=== PATIENT | female | born 1970 | race African-American/Black ===

== ENCOUNTER 2017-10-13 22:13 | Emergency (ER) | payer OTHER ==
[~2017-10-13] VITALS: Ht 175.3 cm; Wt 90.3 kg
[2017-10-13] MEDS ORDERED: ZANTAC 150MG T150 MG PO (22:27)
[2017-10-13] MEDS ORDERED: ZOFRAN ODT8 MG PO (23:07)
[2017-10-13] MEDS ORDERED: OSELB75 PO (23:07)
== END 2017-10-14 00:25 | disposition home or self-care (01) ==
LOC: EDBD 22:13 → ER 22:13
DX: J11.1 Influenza due to unidentified influenza virus with other respiratory manifestations (principal); R11.2 Nausea with vomiting, unspecified; R19.7 Diarrhea, unspecified

== ENCOUNTER 2019-11-16 13:52 | Emergency (ER) | payer OTHER ==
[~2019-11-16] VITALS: Ht 172.7 cm; Wt 72.6 kg
[~2019-11-16 13:52] MED LIST: OSELB75 PO; ZANTAC 150MG T150 MG PO; ZOFRAN ODT8 MG PO
[2019-11-16] MEDS ORDERED: NORCO 5-325 TA1 EAC1 PO (16:52)
[2019-11-16 17:04] VITALS: BP 115/78
== END 2019-11-16 17:05 | disposition home or self-care (01) ==
LOC: ER 13:52
DX: M25.572 Pain in left ankle and joints of left foot (principal); R60.0 Localized edema

== ENCOUNTER 2020-03-04 22:32 | Emergency (ER) | payer OTHER ==
[~2020-03-04] VITALS: Ht 175.3 cm; Wt 95.3 kg
[~2020-03-04 22:32] MED LIST changes: +NORCO 5-325 TA1 EAC1 PO
[2020-03-05 00:37] LABS: HEMATOCRIT 38.5 % (37.0-47.0); HEMOGLOBIN 12.6 gm/dL (12.0-15.0); MCH 30.3 pg (26.0-34.0); MCHC 32.8 g/dL (28.0-37.0); MCV 92.2 fL (80.0-100.0); RBC 4.17 mil/uL (4.20-5.00); RDW 14.7 % (10.5-14.5); WBC 7.7 thou/uL (4.0-11.0)
[2020-03-05 00:39] LABS: ANION GAP 12 mmol/L (7-16); BUN 13 mg/dL (7-18); CALCIUM 8.7 mg/dL (8.5-10.1); CHLORIDE 99 mmol/L (98-107); CO2 23 mmol/L (21-32); CREATININE 0.8 mg/dL (0.6-1.0); GLUCOSE 140 mg/dL (74-106); POTASSIUM 3.5 mmol/L (3.5-5.1); SODIUM 134 mmol/L (136-145)
[2020-03-05 00:50] LABS: LIPASE 223 U/L (73-393); SGOT 24 U/L (15-37); SGPT 20 U/L (30-65); TOTAL BILIRUBIN 0.5 mg/dL (0.2-1.0); TOTAL PROTEIN 7.5 g/dL (6.4-8.2); TROPONIN-I <0.06 ng/mL (<0.06)
[2020-03-05 01:27] LABS: URINE BILIRUBIN NEGATIVE (Negative); URINE BLOOD NEGATIVE (Negative); URINE CLARITY CLEAR; URINE COLOR YELLOW; URINE GLUCOSE-RANDOM* NEGATIVE (Negative); URINE KETONES TRACE (Negative); URINE LEUKOCYTES-REFLEX TRACE (Negative); URINE NITRITE-REFLEX NEGATIVE (Negative); URINE PROTEIN (DIPSTICK) NEGATIVE (Negative); URINE UROBILINOGEN 0.2 E.U./dl (0.2-1.0)
[2020-03-05 01:37] LABS: AMP/METHAMP Negative (Negative); BARBITURATES Negative (Negative); BENZODIAZEPINES Negative (Negative); COCAINE Negative (Negative); METHADONE Negative (Negative); OPIATES Negative (Negative); PCP Negative (Negative)
[2020-03-05] MEDS ORDERED: REGLAN 10 MG TA10 MG PO (02:10)
[2020-03-05 03:00] VITALS: BP 157/68
--- NOTE | 2020-03-05 08:52 | EKG ---
[facility] [place] [address] ELECTROCARDIOGRAM REPORT Name: ERON BRANCH Room #: DEP [facility]#: [id number] Admission: 03/04/20 Attend Phys: Discharge: 03/05/20 Date of : 74 Report #: [id number] THIS REPORT FOR: cc: KADE - Imani family physician/PCP KADE - Imani family physician/PCP Juan Coppola MD 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
== END 2020-03-05 03:02 | disposition home or self-care (01) ==
LOC: ER 22:32
PROVIDERS: Student in an Organized Health Care Education/Training Program
DX: R11.10 Vomiting, unspecified (principal); K21.9 Gastro-esophageal reflux disease without esophagitis

== ENCOUNTER 2020-03-19 05:14 | Emergency (ER) | payer OTHER ==
[~2020-03-19] VITALS: Ht 175.3 cm; Wt 88.0 kg
[~2020-03-19 05:14] MED LIST changes: +REGLAN 10 MG TA10 MG PO
[2020-03-19 05:20] VITALS: BP 150/89
[2020-03-19] MEDS ORDERED: IBUPROFEN 600600 M1 PO (05:38)
[2020-03-19] MEDS ORDERED: KEFLEX500 M1 PO (05:38)
[2020-03-19] MEDS ORDERED: ACETAMINOPHEN PO (05:44)
== END 2020-03-19 05:53 | disposition home or self-care (01) ==
LOC: ER 05:14
DX: M79.641 Pain in right hand (principal); K21.9 Gastro-esophageal reflux disease without esophagitis; Z79.899 Other long term (current) drug therapy

== ENCOUNTER 2021-03-03 20:56 | Emergency (ER) | payer OTHER ==
[~2021-03-03] VITALS: Ht 175.3 cm; Wt 95.3 kg
[~2021-03-03 20:56] MED LIST changes: +ACETAMINOPHEN PO; +IBUPROFEN 600600 M1 PO; +KEFLEX500 M1 PO
[2021-03-03 21:08] VITALS: BP 143/96
[2021-03-03 23:08] LABS: HEMATOCRIT 41.9 % (37.0-47.0); HEMOGLOBIN 13.8 gm/dL (12.0-15.0); MCH 30.1 pg (26.0-34.0); MCHC 32.9 g/dL (28.0-37.0); MCV 91.6 fL (80.0-100.0); RBC 4.58 mil/uL (4.20-5.00); RDW 15.9 % (10.5-14.5); WBC 12.6 thou/uL (4.0-11.0)
[2021-03-03 23:16] LABS: CALCIUM 9.4 mg/dL (8.5-10.1); CREATININE 0.8 mg/dL (0.6-1.0); POTASSIUM 4.1 mmol/L (3.5-5.1)
[2021-03-03 23:22] LABS: TOTAL BILIRUBIN 0.5 mg/dL (0.2-1.0); TOTAL PROTEIN 8.1 g/dL (6.4-8.2)
[2021-03-04] MEDS ORDERED: PHENERGAN 25 MG25 M1 PO (00:11)
[2021-03-04 00:48] LABS: URINE BILIRUBIN NEGATIVE (Negative); URINE BLOOD 1+ (Negative); URINE CLARITY CLEAR; URINE COLOR YELLOW; URINE GLUCOSE-RANDOM* NEGATIVE (Negative); URINE KETONES 2+ (Negative); URINE LEUKOCYTES-REFLEX NEGATIVE (Negative); URINE NITRITE-REFLEX NEGATIVE (Negative); URINE PROTEIN (DIPSTICK) 1+ (Negative); URINE SPECIFIC GRAVITY >= 1.030 (1.005-1.035); URINE UROBILINOGEN 0.2 E.U./dl (0.2-1.0)
[2021-03-04 00:52] LABS: BACTERIA-REFLEX None Seen /HPF (None Seen); CASTS None Seen /LPF (None Seen); CRYSTALS None Seen /LPF (None Seen); MUCUS 0-3 Light strn/LPF (None Seen); SQUAMOUS 0-3 Few /LPF (0-3); TRANSITIONAL EPITHEL CELL 0-3 Few /LPF (None Seen); URINE RBC None Seen /HPF (NONE SEEN); URINE WBC-REFLEX None Seen /HPF (0-5)
== END 2021-03-04 00:40 | disposition home or self-care (01) ==
LOC: ER 20:56
PROVIDERS: Nurse Practitioner Family
DX: R10.13 Epigastric pain (principal); R11.10 Vomiting, unspecified; K21.9 Gastro-esophageal reflux disease without esophagitis